=== PATIENT | female | born 1945 | race Caucasian/White ===

== ENCOUNTER 2016-08-31 16:51 | Inpatient (IN) | payer MEDICARE, BC ==
[~2016-08-31] VITALS: Ht 152.4 cm; Wt 76.8 kg
--- NOTE | ~2016-08-31 | ER ---
PATIENT'[facility]: [facility] AGE: 71 Y [address] ROOM: [place] [address] LOCATION: GPCU ADMIT DATE: 08/31/2016 ER/Outpatient Report DISCHARGE DATE: FAMILY PHYSICIAN: Joel Wesley MD ATTENDING PHYSICIAN: ROBERTO PAZ Time of Arrival: 1656 hours. Time of initial evaluation by Dr. Vogt: 1705 hours. Time of my evaluation: 1755 hours. CHIEF COMPLAINT: Left lower extremity redness. HISTORY OF PRESENT ILLNESS: The patient is a 71-year-old female who presents to the emergency department today with a chief complaint of left lower extremity redness. She reports this started about 6 hours prior to arrival. The patient did have a fever at home. She does report some subjective fevers at home. No chills. Denies any nausea or vomiting. No diarrhea or constipation. Reports pain is currently 7/10 in severity. She has redness from her left lower extremity all the way up into her left hip area. Denies any chest pain. No shortness of breath. PAST MEDICAL HISTORY: Coronary artery disease, renal failure with 2 kidney transplants, last one in 2005 and chronic lymphedema. PAST SURGICAL HISTORY: Kidney transplant x2, coronary artery bypass grafting, cholecystectomy, and parathyroidectomy. SOCIAL HISTORY: The patient denies any tobacco, alcohol, or illicit drug use. ALLERGIES: SULFA. MEDICATIONS: Please see list. ROS: All systems are reviewed by myself and are negative with the exception of those discussed in HPI and past medical history. PHYSICAL EXAMINATION: VITAL SIGNS: Weight 75.9 kg, blood pressure 120/56, pulse 83, respiratory PATIENT'S NAME: JEWELL SHELDON [facility] AGE: 71 Y [address] ROOM: [address] [address] LOCATION: GPCU ADMIT DATE: 08/31/2016 ER/Outpatient Report DISCHARGE DATE: FAMILY PHYSICIAN: Joel Wesley MD ATTENDING PHYSICIAN: ROBERTO PAZ rate 16, temperature 101.4, oxygen saturation 96% on room air. GENERAL: The patient is a 71-year-old female, appears stated age, in mild acute distress. HEENT: Head: Normocephalic, atraumatic. Pupils are equal, round, and reactive to light. NECK: Supple. There is no nuchal rigidity. CARDIOVASCULAR: Regular rate and rhythm. No murmurs, rubs, or gallops. LUNGS: Clear to auscultation bilaterally. No wheezes, rales, or rhonchi. ABDOMEN: Soft, nontender, and nondistended. No rebound, no rigidity, or guarding. MUSCULOSKELETAL: The patient moves all 4 extremities. SKIN: The patient does have 3+ pretibial edema in bilateral lower extremities. The patient does have erythema to the entire length of the left leg from the foot up into the inguinal crease region. It is blanching. There is no evidence of petechiae or purpura. LABORATORY DATA AND X-RAYS: Labs and x-rays are obtained. Lactate is 1.2. CBC: White blood cell count 15.2, ANC is 13.8, otherwise normal. Coags are normal. CMP is unremarkable except for creatinine 1.2. LFTs are normal. CRP is 7.81. Procalcitonin is 1.75. Chest x-ray shows no significant change. Urinalysis is unremarkable. Bilateral lower extremity ultrasounds are obtained. There is no evidence of DVT, it is slightly technically limited due to the patient's chronic lymphedema. IMPRESSION: 1. Acute left lower extremity cellulitis. 2. Chronic lymphedema. 3. Sepsis due to acute left lower extremity cellulitis. 4. History of kidney transplant. 5. Coronary artery disease. 6. Initial visit. EMERGENCY DEPARTMENT COURSE: The patient was brought back to the examination room. Seen and evaluated initially by Dr. Vogt. Transfer of care was made to myself at shift change. I did see and evaluate the patient as described above. I discussed results with the patient. The patient continues to be febrile. She is given 1 gram of Tylenol. She is also given 600 mg of clindamycin IV. With the patient's multiple comorbidities, I do feel the patient will require admission to the hospital for further evaluation and treatment management. The patient is agreeable. is agreeable. I have discussed the case with Dr. Paz. He has seen and evaluated the patient here in the emergency department. He has agreed to accept the patient for further evaluation and treatment management. PATIENT'S NAME: JEWELL SHELDON [facility] AGE: 71 Y [address] ROOM: [address] [address] LOCATION: GPCU ADMIT DATE: 08/31/2016 ER/Outpatient Report DISCHARGE DATE: FAMILY PHYSICIAN: Joel Wesley MD ATTENDING PHYSICIAN: ROBERTO PAZ DISPOSITION: The patient is admitted under the care of Dr. Paz, the hospital, in stable condition. DO ERIN PEREZ/galileo /[id number] d: 09/01/16 0208 t: 09/04/16 1810, OUTPATIENT REPORT
--- NOTE | ~2016-08-31 | ENPV ---
Vascular Lower Extremities DVT Study Procedure Demographics Patient Name JEWELL SHELDON Date of Study 08/31/2016 K Patient Number [id number] Gender Female Date of 1945 Age 71 Visit Number [id number] Height Accession Number [id number] Weight Room Number G6333 BSA BMI Referring [facility] Joel Lala MD Interpreting Alberto Albarran MD Physician Physician Physician Ordering Physician Torie Roman MD [employer] Maylin Billy T, [facility] Conclusions Summary Normal venous duplex examination of the legs bilaterally with normal venous Doppler signals noted throughout. No evidence of thrombophlebitis is noted bilaterally in the deep and superficial veins of the legs. Small calf thrombi cannot be excluded. Procedure Type of Study: Veins:Lower Extremities DVT Study, Lower Extremity Right, Venous Duplex Lower Extremity Bilateral. Indications for Study:Swelling and Tenderness. Appropriate Use Criteria:6 Allergies - Sulfa. - Contrast. - Sulfa. Patient Status:STAT. Study Location:Inpatient Portable. Technical Quality:Limited visualization. - Preliminary reported to:Dr. Stark 1809. Velocities are measured in cm/s ; Diameters are measured in cm Right Lower Extremities DVT Study Measurements Right 2D and Doppler Measurements + + + + +------+------+ + !Location !Visualized!Compressibility!Thrombosis!Signal!Reflux!Reflux ! ! ! ! ! ! ! !(sec) ! + + + + +------+------+ + !GSV Thigh !Yes !Yes !None !Phasic! ! ! + + + + +------+------+ + !Common !Yes !Yes !None !Phasic! ! ! !Femoral ! ! ! ! ! ! ! + + + + +------+------+ + !Prox !Yes !Yes !None !Phasic! ! ! !Femoral ! ! ! ! ! ! ! + + + + +------+------+ + !Mid Femoral!Yes !Yes !None !Phasic! ! ! + + + + +------+------+ + !Dist !Yes !Yes !None !Phasic! ! ! !Femoral ! ! ! ! ! ! ! + + + + +------+------+ + !Popliteal !Yes !Yes !None !Phasic! ! ! + + + + +------+------+ + !PTV !Yes !Yes !None !Phasic! ! ! + + + + +------+------+ + !Peroneal !Yes !Yes !None !Phasic! ! ! + + + + +------+------+ + Left Lower Extremities DVT Study Measurements Left 2D and Doppler Measurements + + + + +------+------+ + !Location !Visualized!Compressibility!Thrombosis!Signal!Reflux!Reflux ! ! ! ! ! ! ! !(sec) ! + + + + +------+------+ + !GSV Thigh !Yes !Yes !None !Phasic! ! ! + + + + +------+------+ + !Common !Yes !Yes !None !Phasic! ! ! !Femoral ! ! ! ! ! ! ! + + + + +------+------+ + !Prox !Yes !Yes !None !Phasic! ! ! !Femoral ! ! ! ! ! ! ! + + + + +------+------+ + !Mid Femoral!Yes !Yes !None !Phasic! ! ! + + + + +------+------+ + !Dist !Yes !Yes !None !Phasic! ! ! !Femoral ! ! ! ! ! ! ! + + + + +------+------+ + !Popliteal !Yes !Yes !None !Phasic! ! ! + + + + +------+------+ + !PTV !Yes !Yes !None !Phasic! ! ! + + + + +------+------+ + !Peroneal !Yes !Yes !None !Phasic! ! ! + + + + +------+------+ + Signature dtt: SARAH LO: 08/31/[id number] Physician Self Edit
--- NOTE | ~2016-08-31 | DS ---
PATIENT'S NAME: JEWELL SHELDON [facility] AGE: 71 Y [address] ROOM: [place] [address] LOCATION: GPCU ADMIT DATE: 08/31/2016 Discharge Summary DISCHARGE DATE: 09/03/2016 FAMILY PHYSICIAN: Joel Wesley MD ATTENDING PHYSICIAN: Melonie Paz ADMISSION DIAGNOSIS: Sepsis secondary to left lower extremity cellulitis. DISCHARGE DIAGNOSES: 1. Sepsis secondary to left lower extremity cellulitis. 2. Chronic lymph edema. 3. Status post renal transplant on immunosuppressive medication. 4. Chronic kidney disease, stage 3. 5. Coronary artery disease status post coronary artery bypass graft. 6. Hypertension. 7. Hyperlipidemia. 8. Depression. HOSPITALIZATION COURSE: The patient was admitted after she had an episode of cellulitis in her left lower extremity noted by rash. She was noted to have to have a white count of 15.2 and a temperature of 101.2. The patient was admitted and started on initially IV vancomycin, which was changed to IV Zyvox given her renal status. She did remarkably well and remained afebrile during the hospitalization. Her white count improved to 6.4 at the time of discharge. Hemoglobin has remained stable. Kidney function also improved with creatinine of 1.2 improving to 1.1 at the time of discharge. The patient remained clinically and hemodynamically stable and is discharged in good condition. CONDITION ON DISCHARGE: Good. ACTIVITY: Ad brett. DIET: Low-salt diet. DISCHARGE MEDICATIONS: 1. Aspirin 81 mg daily. 2. Vitamin B complex one tab daily. 3. Carvedilol 6.25 mg twice daily. 4. Vitamin D3 1000 units daily. 5. Calcium/vitamin D3 one tab twice a day. 6. Celexa 10 mg at bedtime. 7. Vytorin 10/80 mg one tab at bedtime. 8. Singulair 10 mg daily. PATIENT'S NAME: JEWELL SHELDON [facility] AGE: 71 Y [address] ROOM: [place] [address] LOCATION: GPCU ADMIT DATE: 08/31/2016 Discharge Summary DISCHARGE DATE: 09/03/2016 FAMILY PHYSICIAN: Joel Wesley MD ATTENDING PHYSICIAN: Melonie Paz 9. Mycophenolate 360 mg daily. 10. Omeprazole 20 mg daily. 11. Penicillin V potassium 500 mg twice a day after she completes the course of doxycycline. This is for suppressive therapy for her cellulitis. 12. Aldactone 25 mg daily. 13. Tacrolimus 0.5 mg twice a day. 14. Nasacort 2 sprays in each nostril daily. 15. Fluticasone-discontinued. 16. Albuterol 1-2 puff inhaler every four hourly as needed for shortness of breath. 17. [place]-3 fatty acid 1000 mg at bedtime, 2000 mg in the morning. 18. Fenofibrate 145 mg tablet half tab at bedtime. 19. Lisinopril 2.5 mg daily. 20. Furosemide 80 mg daily. 21. Magnesium 250 mg twice a day. 22. Brilinta 60 mg twice a day. 23. Lactobacillus 460 mg daily. 24. Cyclosporine Restasis 0.05% one drop twice a day for dry eyes. 25. Prolia every 6 months. ADDITIONAL MEDICATION: Doxycycline 100 mg twice a day for a total of 10 days. DISCHARGE INSTRUCTIONS: 1. Follow up with PCP in one week with repeat CBC, renal, and ESR. 2. The patient will complete a course of doxycycline 100 mg twice a day for another 10 days. 3. Keep legs elevated. DISPOSITION: Home. ANGEL TONEY MD BA/galileo /[id number] d: 09/03/162142 t: 09/04/16 171, DISCHARGE SUMMARY
--- NOTE | ~2016-08-31 | HP ---
PATIENT'S NAME: JEWELL SHELDON [facility] AGE: 71 Y [address] ROOM: [place] [address] LOCATION: GPCU ADMIT DATE: 08/31/2016 History & Physical DISCHARGE DATE: FAMILY PHYSICIAN: Joel Wesley MD ATTENDING PHYSICIAN: ROBERTO PARADA DATE OF SERVICE: CHIEF COMPLAINT: Sepsis, secondary to left lower extremity cellulitis. HISTORY OF PRESENT ILLNESS: This is a 71-year-old female with history of chronic lower extremity lymphedema; chronic kidney disease, stage 3, status post renal transplant; coronary artery disease, status post stents in 2016; as well as history of hypertension, and she is on immunosuppression with Prograf, who presents with one-day history of left leg swelling and erythema and pain. The patient throughout this time also describes subjective fever and chills as well. The patient otherwise stable and does mention some tachycardia with palpitations together with feelings of chills. However, denies any other complaints. Denies any dizziness, lightheadedness, nausea, vomiting, and abdominal pain. Denies any cough, shortness of breath, or chest pain. The patient, otherwise, has been in her usual state of health until this current episode. PAST MEDICAL HISTORY: 1. Coronary artery disease with stents. 2. Hypertension. 3. CKD 3, status post renal transplant. 4. Chronic lymphedema. 5. Depression. 6. Hyperlipidemia. FAMILY HISTORY: The patient has history of cancer in the mother and heart disease in her parents and siblings. SOCIAL HISTORY: Denies history of smoking, alcohol, or drug use. REVIEW OF SYSTEMS: All systems have been reviewed and were all negative, except as described in the HPI. PHYSICAL EXAMINATION: VITAL SIGNS: Blood pressure 133/63, pulse 77, respiratory rate 15, PATIENT'S NAME: JEWELL SHELDON [facility] AGE: 71 Y [address] ROOM: [place] [address] LOCATION: GPCU ADMIT DATE: 08/31/2016 History & Physical DISCHARGE DATE: FAMILY PHYSICIAN: Joel Wesley MD ATTENDING PHYSICIAN: ROBERTO PARADA temperature max 101.3, and saturating 98% on room air. GENERAL: The patient is awake, alert, and oriented x3, in no acute distress. HEENT: Moist mucous membranes. No scleral icterus or conjunctival pallor noted. HEART: S1, S2. Regular rate and rhythm. ABDOMEN: Soft, nontender, and nondistended. Positive bowel sounds. CHEST: Clear to auscultation bilaterally. SKIN: Erythema and warmth diffusely in the left lower extremity all the way up to her thigh. MUSCULOSKELETAL: No joint tenderness, effusion, or muscular pain noted. NEUROLOGIC: Grossly nonfocal. LABORATORY DATA: Blood work: Leukocytosis of 15,000. ASSESSMENT AND PLAN: 1. Sepsis, secondary to left leg cellulitis. The patient had a fever of 101.3 as well as white blood cell count of 15,000. We will get blood cultures x2 and start IV antibiotics with vancomycin, and we will continue to monitor clinically. 2. Left leg cellulitis, to be managed as above. 3. Coronary artery disease, status post stents in 2016. We will continue her cardiac medications. 4. Essential hypertension. We will continue her blood pressure medications as per her home prescriptions. 5. Chronic kidney disease, stage 3, status post renal transplant. We will have the patient continue her Prograf. 6. Immunosuppressed state. We will have her continue her immunosuppressions at this time. 7. Depression. We will continue her home medications. 8. Chronic lymphedema. We will symptomatically manage in addition to treating the cellulitis. 9. Deep venous thrombosis prophylaxis. We will use subcutaneous heparin. MD VIOLETA LIGHT/galileo /[id number] D: [id number] T: 521 HISTORY & PHYSICAL
[~2016-08-31 16:51] MED LIST: ALDACTONE25 MG PO; ASPIRIN EC81 MG PO; B COMPLEX1 EACH PO; BRILINTA60 MG PO; CALCIUM PO; CELEXA20 MG PO; CITRACAL + D M1 EACH PO; COREG6.25 MG PO; FENOFIBRATE145 MG PO; FISH OIL 1,0001 EAC1 PO; FLONASE 50 MCG/16 GM NOSE; LASIX80 MG PO; MAGNESIUM250 M1 PO; MYFORTIC360 MG PO; NASACORT16.9 ML NOSE; PENICILLIN V P500 MG PO; PRILOSEC20 MG PO; PROAIR HFA8.5 GM INH; PROGRAF0.5 MG PO; SINGULAIR10 MG PO; VITAMIN D1000 UNIT PO; VYTORIN 10-801 EACH PO; ZESTRIL2.5 MG PO; [UNRECOGNIZED DRUG - OTHER] PO
[2016-08-31 17:49] LABS: BASOPHIL % 0.1 %; EOSINOPHIL % 0.1 %; HEMATOCRIT 39.1 % (33.0-46.0); IMMATURE GRANULOCYTE # 0.1 K/uL (0.0-0.3); IMMATURE GRANULOCYTE % 0.7 %; LYMPHOCYTE # 0.8 K/uL (0.8-4.0); LYMPHOCYTE % 5.4 %; MCH 29.7 pg (27.0-34.0); MCHC 33.2 gm/dL (32.0-36.5); MCV 89.3 fl (83.0-98.0); MONOCYTE # 0.4 K/uL (0.0-1.0); MONOCYTE % 2.8 %; MPV 10.8 fl (9.4-12.4); NEUTROPHIL # (ANC) 13.8 K/uL (1.8-7.8); NEUTROPHIL % 90.9 %; NRBC % 0 /100WBC (0-0.00); PLATELET COUNT 187 K/uL (150-450); RBC 4.38 M/uL (3.50-5.50); RDW-CV 13.2 % (11.9-14.6); WBC 15.2 K/uL (4.0-11.0)
[2016-08-31 18:03] LABS: PROTIME 10.5 SECONDS (9.8-11.4); PTT 27 SECONDS (25-32)
[2016-08-31 18:09] LABS: ALBUMIN 3.1 gm/dL (3.5-5.0); ANION GAP 14.7 (10.0-19.0); CALCIUM 8.7 mg/dL (8.5-10.5); CREATININE 1.2 mg/dL (0.5-1.1); POTASSIUM 3.7 mMol/L (3.7-5.1); TOTAL BILIRUBIN 1.2 mg/dL (0.0-1.5); TOTAL PROTEIN 6.5 g/dL (6.0-8.4)
[2016-08-31 18:36] LABS: BILIRUBIN URINE NEGATIVE (NEGATIVE); BLOOD URINE NEGATIVE /UL (NEGATIVE); COLOR URINE YELLOW (YELLOW); GLUCOSE URINE NEGATIVE (NEGATIVE); KETONE URINE NEGATIVE (NEGATIVE); LEUKOCYTES URINE 25 /UL (NEGATIVE); NITRITE URINE NEGATIVE (NEGATIVE); PROTEIN URINE NEGATIVE (NEGATIVE); UROBILINOGEN URINE NORMAL (NORMAL)
[2016-08-31 18:40] LABS: TURBIDITY URINE CLEAR (CLEAR)
[2016-08-31 18:50] LABS: BACTERIA URINE FEW (NEGATIVE); EPITHELIAL URINE 0-2 #/HPF (NEGATIVE); MUCUS URINE 1+ (NEGATIVE); RBC URINE RARE #/HPF (NEGATIVE)
[2016-08-31 18:51] LABS: HYALINE CAST URINE 0-2 #/LPF (NEGATIVE)
[2016-08-31] MEDS ORDERED: FLORAJEN460 MG PO (20:31)
[2016-08-31] MEDS ORDERED: RESTASIS 0.05%1 VIAL OPHTH (20:32)
[2016-08-31] MEDS ORDERED: PROLIA60 MG/ML SUB-Q (20:33)
[2016-09-01 03:46] LABS: BASOPHIL % 0.2 %; EOSINOPHIL % 0.2 %; HEMATOCRIT 34.8 % (33.0-46.0); HEMOGLOBIN 11.4 g/dL (10.0-15.0); IMMATURE GRANULOCYTE # 0.1 K/uL (0.0-0.3); IMMATURE GRANULOCYTE % 0.5 %; LYMPHOCYTE # 0.7 K/uL (0.8-4.0); LYMPHOCYTE % 7.6 %; MCH 29.7 pg (27.0-34.0); MCHC 32.8 gm/dL (32.0-36.5); MCV 90.6 fl (83.0-98.0); MONOCYTE # 0.4 K/uL (0.0-1.0); MONOCYTE % 3.9 %; MPV 10.5 fl (9.4-12.4); NEUTROPHIL # (ANC) 8.5 K/uL (1.8-7.8); NEUTROPHIL % 87.6 %; NRBC % 0 /100WBC (0-0.00); RBC 3.84 M/uL (3.50-5.50); RDW-CV 13.4 % (11.9-14.6); WBC 9.7 K/uL (4.0-11.0)
[2016-09-01 03:47] LABS: PLATELET COUNT 148 K/uL (150-450)
[2016-09-01 03:56] LABS: ALBUMIN 2.6 gm/dL (3.5-5.0); ANION GAP 13.5 (10.0-19.0); CALCIUM 8.3 mg/dL (8.5-10.5); CREATININE 1.3 mg/dL (0.5-1.1); MAGNESIUM 1.6 mg/dL (1.8-2.6); PHOSPHORUS 2.2 mg/dL (2.5-4.9); POTASSIUM 3.5 mMol/L (3.7-5.1)
[2016-09-02 03:43] LABS: BASOPHIL % 0.2 %; EOSINOPHIL # 0.1 K/uL (0.0-0.5); EOSINOPHIL % 0.8 %; HEMOGLOBIN 11.2 g/dL (10.0-15.0); IMMATURE GRANULOCYTE % 0.3 %; LYMPHOCYTE # 0.8 K/uL (0.8-4.0); LYMPHOCYTE % 12.4 %; MCH 29.9 pg (27.0-34.0); MCHC 32.9 gm/dL (32.0-36.5); MCV 90.7 fl (83.0-98.0); MONOCYTE # 0.4 K/uL (0.0-1.0); MONOCYTE % 5.6 %; MPV 10.9 fl (9.4-12.4); NEUTROPHIL # (ANC) 5.1 K/uL (1.8-7.8); NEUTROPHIL % 80.7 %; NRBC % 0 /100WBC (0-0.00); PLATELET COUNT 146 K/uL (150-450); RBC 3.75 M/uL (3.50-5.50); RDW-CV 13.3 % (11.9-14.6); WBC 6.3 K/uL (4.0-11.0)
[2016-09-02 04:00] LABS: ANION GAP 12.1 (10.0-19.0); CALCIUM 8.2 mg/dL (8.5-10.5); CREATININE 1.1 mg/dL (0.5-1.1); POTASSIUM 4.1 mMol/L (3.7-5.1)
[2016-09-03 03:22] LABS: BASOPHIL % 0.2 %; EOSINOPHIL # 0.1 K/uL (0.0-0.5); EOSINOPHIL % 0.9 %; HEMATOCRIT 32.4 % (33.0-46.0); HEMOGLOBIN 10.9 g/dL (10.0-15.0); IMMATURE GRANULOCYTE % 0.6 %; LYMPHOCYTE # 0.8 K/uL (0.8-4.0); LYMPHOCYTE % 11.8 %; MCH 29.8 pg (27.0-34.0); MCHC 33.6 gm/dL (32.0-36.5); MCV 88.5 fl (83.0-98.0); MONOCYTE # 0.3 K/uL (0.0-1.0); MONOCYTE % 4.1 %; MPV 10.6 fl (9.4-12.4); NEUTROPHIL # (ANC) 5.3 K/uL (1.8-7.8); NEUTROPHIL % 82.4 %; NRBC % 0 /100WBC (0-0.00); PLATELET COUNT 148 K/uL (150-450); RBC 3.66 M/uL (3.50-5.50); RDW-CV 13.1 % (11.9-14.6); WBC 6.4 K/uL (4.0-11.0)
[2016-09-03] MEDS ORDERED: DOXYCYCLINE100 MG PO (16:51)
[2016-09-03] MEDS ORDERED: DIFLUCAN150 MG PO (16:54)
== END 2016-09-03 17:00 | disposition disaster alternative care site (69) | DRG 872 ==
LOC: GMED 16:51 → GPCU 19:57
PROVIDERS: Emergency Medicine; Internal Medicine; Nurse Practitioner Family; ADMIT Internal Medicine
DX: A41.9 Sepsis, unspecified organism (principal); L03.116 Cellulitis of left lower limb; I13.10 Hypertensive heart and chronic kidney disease without heart failure, with stage 1 through stage 4 chronic kidney disease, or unspecified chronic kidney disease; Z94.0 Kidney transplant status; N18.3 Chronic kidney disease, stage 3 (moderate); E78.5 Hyperlipidemia, unspecified; F32.9 Major depressive disorder, single episode, unspecified; I25.10 Atherosclerotic heart disease of native coronary artery without angina pectoris; I89.0 Lymphedema, not elsewhere classified; Z79.899 Other long term (current) drug therapy
CPT/HCPCS: J1644; J2020; J3370; J3475; J7030; J7050; J7507; J7518

== ENCOUNTER → 2016-09-14 | Outpatient (CLI) | payer MEDICARE, BC ==
[~2016-09-14] MED LIST changes: +DIFLUCAN150 MG PO; +DOXYCYCLINE100 MG PO; +FLORAJEN460 MG PO; +PROLIA60 MG/ML SUB-Q; +RESTASIS 0.05%1 VIAL OPHTH
[2016-09-14 10:42] LABS: BASOPHIL % 0.6 %; EOSINOPHIL # 0.1 K/uL (0.0-0.5); EOSINOPHIL % 1.8 %; HEMOGLOBIN 12.5 g/dL (10.0-15.0); IMMATURE GRANULOCYTE % 0.8 %; LYMPHOCYTE # 1.1 K/uL (0.8-4.0); LYMPHOCYTE % 22.7 %; MCH 29.8 pg (27.0-34.0); MCHC 32.9 gm/dL (32.0-36.5); MCV 90.7 fl (83.0-98.0); MONOCYTE # 0.4 K/uL (0.0-1.0); MONOCYTE % 8.9 %; MPV 10.6 fl (9.4-12.4); NEUTROPHIL # (ANC) 3.2 K/uL (1.8-7.8); NEUTROPHIL % 65.2 %; NRBC % 0 /100WBC (0-0.00); PLATELET COUNT 252 K/uL (150-450); RBC 4.19 M/uL (3.50-5.50); RDW-CV 13.2 % (11.9-14.6); WBC 4.9 K/uL (4.0-11.0)
[2016-09-14 10:55] LABS: ALBUMIN 3.1 gm/dL (3.5-5.0); ANION GAP 11.3 (10.0-19.0); CALCIUM 9.2 mg/dL (8.5-10.5); CREATININE 1.2 mg/dL (0.5-1.1); MAGNESIUM 2.2 mg/dL (1.8-2.6); PHOSPHORUS 2.6 mg/dL (2.5-4.9); POTASSIUM 4.3 mMol/L (3.7-5.1); TOTAL PROTEIN 6.7 g/dL (6.0-8.4)
[2016-09-14 10:56] LABS: TOTAL BILIRUBIN 0.7 mg/dL (0.0-1.5)
== END | disposition disaster alternative care site (69) ==
LOC: GLAB 09:10
PROVIDERS: Internal Medicine Nephrology
DX: E78.00 Pure hypercholesterolemia, unspecified (principal)

== ENCOUNTER → 2016-12-07 | Outpatient (CLI) | payer MEDICARE, BC ==
[2016-12-07 10:02] LABS: BASOPHIL % 0.7 %; EOSINOPHIL # 0.2 K/uL (0.0-0.5); EOSINOPHIL % 3.5 %; HEMATOCRIT 40.1 % (33.0-46.0); HEMOGLOBIN 13.6 g/dL (10.0-15.0); IMMATURE GRANULOCYTE % 0.2 %; LYMPHOCYTE # 1.3 K/uL (0.8-4.0); LYMPHOCYTE % 28.8 %; MCHC 33.9 gm/dL (32.0-36.5); MCV 88.5 fl (83.0-98.0); MONOCYTE # 0.5 K/uL (0.0-1.0); MONOCYTE % 10.7 %; MPV 10.5 fl (9.4-12.4); NEUTROPHIL # (ANC) 2.6 K/uL (1.8-7.8); NEUTROPHIL % 56.1 %; NRBC % 0 /100WBC (0-0.00); PLATELET COUNT 204 K/uL (150-450); RBC 4.53 M/uL (3.50-5.50); RDW-CV 13.2 % (11.9-14.6); WBC 4.6 K/uL (4.0-11.0)
[2016-12-07 10:20] LABS: CALCIUM 8.8 mg/dL (8.5-10.5); MAGNESIUM 2.4 mg/dL (1.8-2.6); PHOSPHORUS 3.1 mg/dL (2.5-4.9)
== END | disposition disaster alternative care site (69) ==
LOC: GLAB 09:23
PROVIDERS: Internal Medicine Nephrology
DX: Z48.22 Encounter for aftercare following kidney transplant (principal); Z94.0 Kidney transplant status; Z79.899 Other long term (current) drug therapy